=== PATIENT | female | born 1995 | race Two or more races ===

== ENCOUNTER 2018-09-13 11:41 | Emergency (ER) | payer BC ==
[~2018-09-13] VITALS: Ht 152.4 cm; Wt 91.2 kg
[2018-09-13 11:50] VITALS: BP 125/71; Ht 152.4 cm; Wt 91.2 kg
== END 2018-09-13 12:47 | disposition home or self-care (01) ==
LOC: ED 11:41
DX: K59.00 Constipation, unspecified (principal); R03.0 Elevated blood-pressure reading, without diagnosis of hypertension